=== PATIENT | male | born 1945 | race Caucasian/White ===

== ENCOUNTER 2024-05-02 19:08 | Emergency (ER) | payer BC, SELFPAY ==
[2024-05-02 19:09] VITALS: BP 185/88
[2024-05-02 20:26] VITALS: BMI 33.3
--- NOTE | 2024-05-02 22:05 | ED.GENMED ---
History of Present Illness
General
Chief Complaint: Skin Surface Trauma
Source: patient and spouse
Exam Limitations: none
Time Seen by Provider: 05/02/24 20:49
Nursing documentation reviewed up to this point in time: agreed with
History of Present Illness
History of Present Illness:
Patient presents to ED for evaluation after accidentally cutting his left thumb with a table saw. Denies any other injuries. Patient unsure of his last tetanus vaccination. Denies loss of sensation. Denies nail involvement.
Past History
Past History
ED Past Medical History: HTN and Hypercholesterolemia
Social History
Tobacco: Non-smoker
Alcohol: None
Drug: None
Personal:
Living: with family
Review of Systems
Review of Systems
Allergies reviewed?: Yes
All Other Systems: ROS reviewed and negative except as documented in HPI and ROS
Constitutional: Reports no symptoms
Skin: Reports other (Finger laceration)
Neurological: Reports no symptoms
Phy Exam
Physical Exam
Physical Exam:
Physical Exam
General: no apparent distress, not acutely ill. afebrile.
Head: nc/at. eomi
Neck: supple.
Neuro: alert and oriented. no focal neurological deficits
Skin: left 1st phalanx: macerated laceration noted over distal volar surface, without pulsatile bleeding. nail intact.
Psychiatric: well kept. interactive and cooperative
Extremities: no edema.
Course
Orders/Labs/Results
Orders:
Orders
05/02/24 22:05
Tetanus/Diphth/Acelpertussis [Adacel] 0.5 ml IM .ONCE ONE
Vital Signs
Initial and Last Documented VS:
Initial Vital Signs
Temp Pulse Resp BP Pulse Ox
98.2 F 63 18 185/88 99
05/02/24 19:09 05/02/24 19:09 05/02/24 19:09 05/02/24 19:09 05/02/24 19:09
Last Documented Vital Signs
Temp Pulse Resp BP Pulse Ox
97.5 F 50 18 187/80 98
05/02/24 22:27 05/02/24 22:27 05/02/24 19:09 05/02/24 22:27 05/02/24 22:27
Procedures
Laceration Closure
Left Distal Volar Thumb:
Status of Wound: dirty
Size of Wound in cm: 4
Description of Wound Edges: surrounded by abrasion and macerated
Preparation: cleaned with saline and cleaned with Betadine
Anesthesia: 1% Lidocaine
Revision/Debridement: minor revision and irrigate-direct pressure
Wound exploration: extensive cleaning of contaminated wound
Type of Closure: single layer closure
Skin Closure Material: 5-0 nylon
Number of sutures: 4
MDM/Problems Addressed
MDM/Problems Addressed:
Wound anesthetized digitally with lidocaine and irrigated copiously with Betadine and saline solution. Macerated open laceration loosely approximated with application of 4 sutures. Afterwards, additional Steri-Strips applied and bulky dressing
provided. As patient is already on amoxicillin secondary to recent dental procedure, no additional antibiotics prophylactically will be provided. However, discussed possibility of potential infection due to contamination. Advise close follow-up
with PCP for reevaluation.
*Critical Care Note
Total Time (30-74mins, 75-104mins- exclusive of procedures): Not Applicable
ED Attending Note
-
Portions of this chart may have been created with voice recognition software.� Occasional wrong word or��sound alike� substitutions may have occurred due to the inherent limitations of voice recognition software.
Discharge Plan
Departure
Patient Disposition: Home (Routine Discharge)
Date of Disposition: 05/02/24
Time of Disposition: 22:09
Patient with high blood pressure during this ER visit?: Yes
Discharge Problem:
Finger laceration
Instructions: Laceration Repair With Stitches (DC)
Prescriptions:
No Action
aspirin 81 mg Tablet,Delayed Release (Dr/Ec)
81 mg PO DAILY
simvastatin 40 mg Tablet
40 mg PO HS
valsartan 160 mg Tablet
240 mg PO DAILY
metoprolol tartrate 25 mg Tablet
12.5 mg PO BID
Referrals:
Burt Fraser DO [Family Provider] -
Activity Restrictions/Additional Instructions:
As discussed, please follow-up with your primary care physician for reevaluation, including suture removal in 7 to 10 days.
Interventions
Interventions:
*Risk Screen - Suicide Last Done: 05/02/24 19:09
*General Assessment Last Done: 05/02/24 19:09
*Neglect/Abuse Screening Last Done: 05/02/24 19:09
ED- Fall Risk Assessment Last Done: 05/02/24 20:27
*ED COVID-19 Vaccine History Last Done: 05/02/24 20:27
ED-Skin Assessment Last Done: 05/02/24 20:32
Discharge Date and Time
Print Language: SWEDISH
[2024-05-02 22:27] VITALS: BP 187/80
[2024-05-02] MEDS: ADACEL 0.5 ML IM (22:37)
== END 2024-05-02 22:54 | disposition home or self-care (01) ==
LOC: EMR 19:08
PROVIDERS: EMERGENCY PHYSICIAN Emergency Medicine; FAMILY PHYSICIAN Family Medicine; REFERRING PHYSICIAN Family Medicine
DX: S61.022A Laceration with foreign body of left thumb without damage to nail, initial encounter (principal); W31.2XXA Contact with powered woodworking and forming machines, initial encounter; Z23 Encounter for immunization; I10 Essential (primary) hypertension; E78.00 Pure hypercholesterolemia, unspecified; I25.10 Atherosclerotic heart disease of native coronary artery without angina pectoris; M19.90 Unspecified osteoarthritis, unspecified site; Z79.82 Long term (current) use of aspirin; Z95.5 Presence of coronary angioplasty implant and graft; Z85.828 Personal history of other malignant neoplasm of skin; Z87.820 Personal history of traumatic brain injury; Z87.891 Personal history of nicotine dependence
CPT/HCPCS: 12042; 99282; 90471; 90715

== ENCOUNTER → 2024-05-24 08:32 | Outpatient (REF) | payer BC, SELFPAY ==
[2024-05-24 10:41] LABS: % Basophils 0.8 % (0-2); % Eosinophils 2.9 % (0-6); % Immature Granulocytes 0.2 % (0-0.5); % Monocytes 10.7 % (1.7-9.3); % Neutrophils 43.4 % (42.2-75.2); Absolute Basophils 0.1 10^3/uL (0-0.2); Absolute Eosinophils 0.2 10^3/uL (0-0.7); Absolute Lymphocytes 2.6 10^3/uL (1.2-3.4); Absolute Monocytes 0.7 10^3/uL (0.1-0.6); Absolute Neutrophils 2.7 10^3/uL (1.4-6.5); Hematocrit 43.6 % (39.0-52.0); Mean Corp Hgb Conc. 34.4 g/dL (33.0-37.0); Mean Corpuscular Hgb 32.1 pg (27.0-31.0); Mean Corpuscular Volume 93.2 fL (80.0-94.0); Nucleated Red Blood Cells % 0 % (-); Red Blood Cell Count 4.68 10^6/uL (4.70-6.10); White Blood Cell Count 6.2 10^3/uL (4.8-10.8)
[2024-05-24 10:47] LABS: Glycohemoglobin (HgbA1c) 5.7 % (4.0-5.6)
[2024-05-24 10:59] LABS: ALT (SGPT) 21 U/L (0-50); AST (SGOT) 36 U/L (17-59); Albumin 4.4 g/dl (3.5-5.0); Alkaline Phosphatase 66 U/L (38-126); Blood Urea Nitrogen 18 mg/dl (9-20); Calcium 9.3 mg/dl (8.4-10.2); Carbon Dioxide 25 mmol/L (22-30); Chloride 107 mmol/L (98-107); Glucose 99 mg/dl (70-99); HDL Cholesterol 45 mg/dl; LDL Cholesterol, Calculated 97 mg/dl; Potassium 4.1 mmol/L (3.5-5.1); Sodium 141 mmol/L (135-145); Total Bilirubin 1.1 mg/dl (0.2-1.3); Total Cholesterol 155 mg/dl (50-199); Total Protein 6.9 g/dl (6.3-8.2); Triglyceride 68 mg/dl (10-149); Very Low Density Lipoprotein 13 mg/dl (0-30); eGFR > 60.00
[2024-05-24 11:21] LABS: PSA, Total - Screen 0.79 ng/ml (0.0-4.0); TSH 1.94 uIU/ml (0.47-4.68)
== END ==
LOC: REG 08:32
PROVIDERS: ATTENDING PHYSICIAN Family Medicine; FAMILY PHYSICIAN Family Medicine
DX: I15.1 Hypertension secondary to other renal disorders (principal); E03.4 Atrophy of thyroid (acquired); E11.65 Type 2 diabetes mellitus with hyperglycemia; E78.2 Mixed hyperlipidemia
CPT/HCPCS: 36415; 80053; 80061; 83036; 84443; 85025; G0103

== ENCOUNTER → 2024-05-29 14:58 | Outpatient (REF) | payer BC, SELFPAY | LOC: RAD 14:58 | PROVIDERS: ATTENDING PHYSICIAN Registered Nurse; FAMILY PHYSICIAN Family Medicine | DX: I65.22 Occlusion and stenosis of left carotid artery (principal) | CPT/HCPCS: 93880 ==

== ENCOUNTER 2024-06-24 20:59 | Inpatient (IN) | payer BC, MEDICARE, SELFPAY ==
[2024-06-24 18:01] VITALS: BP 168/86
[2024-06-24 18:10] VITALS: BP 137/108
[2024-06-24 18:25] LABS: % Basophils 0.4 % (0-2); % Eosinophils 0.3 % (0-6); % Immature Granulocytes 0.4 % (0-0.5); % Lymphocytes 12.3 % (20.5-51.1); % Monocytes 7.7 % (1.7-9.3); % Neutrophils 78.9 % (42.2-75.2); Absolute Lymphocytes 1.2 10^3/uL (1.2-3.4); Absolute Monocytes 0.8 10^3/uL (0.1-0.6); Absolute Neutrophils 7.9 10^3/uL (1.4-6.5); Hematocrit 43.9 % (39.0-52.0); Hemoglobin 15.1 g/dL (13.0-18.0); Mean Corp Hgb Conc. 34.4 g/dL (33.0-37.0); Mean Corpuscular Hgb 31.3 pg (27.0-31.0); Mean Corpuscular Volume 91.1 fL (80.0-94.0); Mean Platelet Volume 10.3 fL (7.4-10.4); Nucleated Red Blood Cells % 0 % (-); Platelet Count 203 10^3/uL (130-400); Red Blood Cell Count 4.82 10^6/uL (4.70-6.10); Red Cell Dist. Width 12.8 % (11.5-14.5)
[2024-06-24 18:26] LABS: Glucose - Point of Care 125 mg/dl (70-99)
[2024-06-24 18:37] VITALS: BMI 35.3
[2024-06-24 18:39] LABS: INR 1.14; PT 14.5 Sec (11.4-14.6)
[2024-06-24 18:40] LABS: APTT 33.9 Sec (23.4-35.0)
[2024-06-24 18:45] LABS: ALT (SGPT) 23 U/L (0-50); AST (SGOT) 36 U/L (17-59); Albumin 4.7 g/dl (3.5-5.0); Alkaline Phosphatase 60 U/L (38-126); Blood Urea Nitrogen 18 mg/dl (9-20); Calcium 9.7 mg/dl (8.4-10.2); Carbon Dioxide 26 mmol/L (22-30); Chloride 100 mmol/L (98-107); Estimated Creatinine Clearance 108 ml/min; Glucose 118 mg/dl (70-99); Potassium 4.2 mmol/L (3.5-5.1); Sodium 140 mmol/L (135-145); Total Protein 7.5 g/dl (6.3-8.2); eGFR > 60.00
[2024-06-24 18:50] LABS: Troponin I < 0.012 ng/ml
[2024-06-24 19:00] VITALS: BP 152/71
--- NOTE | 2024-06-24 19:00 | ED.CVA ---
ED Provider Triage
<Sanjay Bazan DO - Last Filed: 06/24/24 19:03>
-
HPI:
EXAM:
TIME OF INITIAL ENCOUNTER: 7 PM
NUMBER AND COMPLEXITY OF PROBLEMS ADDRESSED AT THE ENCOUNTER
� Chronic conditions affecting care: Has had concussion due to 22, CAD with coronary stents, high blood pressure, hyperlipidemia, depression, skin cancer, has had left sided CEA by Dr. Torrez in 2022
� Acute Exacerbation and/or Progression of Chronic Illness:
� Differential Diagnosis includes:
AMOUNT AND/OR COMPLEXITY OF DATA TO BE REVIEWED AND ANALYZED
� I performed an independent evaluation of and my interpretation is:
EKG:
CT: CT brain shows 3 mm acute versus old lacunar infarct in the anterior limb of the internal capsule on the right along with nonspecific white matter changes
X-rays:
Laboratory Studies: CBC unremarkable, chemistries unremarkable, troponin less than 0.012, glucose upon arrival was 125
Other:
� Review of other/old records: I reviewed records, the patient had a Holter monitor just over a year ago which showed very frequent PVCs with no runs of sustained ventricular ectopy there were also very short runs of atrial
tachycardia
� Clinical information was obtained by an independent historian:
� Prescriptions/Medications Considered but not given:
� Further testing considered but not performed:
RISK OF COMPLICATIONS AND/OR MORBIDITY OR MORTALITY OF PATIENT MANAGEMENT
� Social determinants of health affecting care:
� Discussion with other providers:
� Escalation of care including admission/observation vs risk of discharge considered:
<Jared Obrien PA-C - Last Filed: 06/24/24 19:26>
-
HPI: 78-year-old male with coronary artery disease, carotid endarterectomy on baby aspirin daily presents with onset of symptoms of dizziness trouble finding words at around 3:30 PM. 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 He got off the bus to go to the
bathroom when he returned to the bus, he was dizzy having trouble figure out how to start the bus. He was then found to have trouble finding words. Eventually spoke with his daughter on the phone who is a physician here on staff and she describes
that he was aphasic. Patient denies chest pain. He notes a slight cough. Daughter also notes that he has acted like this in the past when he had COVID. He denies abdominal pain nausea or vomiting. Per the who is in the room currently he
seems to be back at his baseline during my exam
EXAM:
TIME OF INITIAL ENCOUNTER: 7 PM
NUMBER AND COMPLEXITY OF PROBLEMS ADDRESSED AT THE ENCOUNTER
� Chronic conditions affecting care: Has had concussion due to 22, CAD with coronary stents, high blood pressure, hyperlipidemia, depression, skin cancer, has had left sided CEA by Dr. Torrez in 2022
� Acute Exacerbation and/or Progression of Chronic Illness:
� Differential Diagnosis includes:
AMOUNT AND/OR COMPLEXITY OF DATA TO BE REVIEWED AND ANALYZED
� I performed an independent evaluation of and my interpretation is:
EKG:
CT: CT brain shows 3 mm acute versus old lacunar infarct in the anterior limb of the internal capsule on the right along with nonspecific white matter changes
X-rays:
Laboratory Studies: CBC unremarkable, chemistries unremarkable, troponin less than 0.012, glucose upon arrival was 125
Other:
� Review of other/old records: I reviewed records, the patient had a Holter monitor just over a year ago which showed very frequent PVCs with no runs of sustained ventricular ectopy there were also very short runs of atrial
tachycardia
� Clinical information was obtained by an independent historian:
� Prescriptions/Medications Considered but not given:
� Further testing considered but not performed:
RISK OF COMPLICATIONS AND/OR MORBIDITY OR MORTALITY OF PATIENT MANAGEMENT
� Social determinants of health affecting care:
� Discussion with other providers:
� Escalation of care including admission/observation vs risk of discharge considered:
History of Present Illness
<Sanjay Bazan DO - Last Filed: 06/24/24 19:03>
General
Chief Complaint: CVA/TIA Symptoms
Time Seen by Provider: 06/24/24 19:00
<Jared Obrien PA-C - Last Filed: 06/24/24 19:26>
General
Source: patient
Exam Limitations: none
Onset of Stroke Symptoms
Onset of symptoms known: No
Time pt last seen normal is known: No
History of Present Illness
History of Present Illness:
See below
Past History
<DO Jeannine Patino Last Filed: 06/24/24 19:03>
Past History
ED Past Medical History: HTN and Hypercholesterolemia
Social History
Tobacco: Non-smoker
Alcohol: None
Drug: None
Personal:
Living: with family
Phy Exam
<Jared Obrien PA-C - Last Filed: 06/24/24 19:26>
Physical Exam
Physical Exam:
General: Well-appearing male no acute respiratory distress
HEENT: Normocephalic atraumatic
Heart: Regular rate and rhythm
Lungs: Clear no wheeze
Neurologic exam: Alert and oriented x 3 no facial asymmetry no drift on exam finger-nose intact [id number] intact. No dysarthria or aphasia.
Skin is warm and flushed
Extremities: No cyanosis or edema
Course
<Sanjay Bazan DO - Last Filed: 06/24/24 19:03>
Orders/Labs/Results
Orders:
Orders
06/24/24 18:14
Electrocardiogram (*1) Stat
Reason for Study: Other
Other Reason for Exam: neuro symptoms
CT Head W/o Cont STROKE ALERT Urgent
Comment:
Reason For Exam: speech issues
Bedside Glucose- Treatment ONCE
EKG- Treatment ONCE
06/24/24 18:21
Complete Blood Count/With Diff Urgent
Comprehensive Metabolic Panel Urgent
PTT Urgent
Prothrombin Time Urgent
Troponin I Urgent
06/24/24 18:44
COVID-19 Antigen Urgent
Source: Nasal Swab
Influenza A+B Rapid Molecular Urgent
LUI Source: Nasal Swab
Specimen Description:
06/24/24 19:16
Aspirin 325 mg PO NOW STA
Clopidogrel Bisulfate [Plavix] 150 mg PO NOW STA
Abnormal Lab Results
06/24/24 06/24/24 06/24/24
18:21 18:25 18:44
MCH 31.3 H pg
(27.0-31.0)
Absolute Neuts (auto) 7.9 H 10^3/uL
(1.4-6.5)
Absolute Monos (auto) 0.8 H 10^3/uL
(0.1-0.6)
Neutrophils % 78.9 H %
(42.2-75.2)
Lymphocytes % 12.3 L %
(20.5-51.1)
Glucose 118 H mg/dl
(70-99)
SARS-CoV-2 Antigen Positive A
(Negative)
POC Glucose 125 H mg/dl
(70-99)
06/24/24 18:21
06/24/24 18:21
Vital Signs
Initial and Last Documented VS:
Initial Vital Signs
Temp Pulse Resp BP Pulse Ox
98.7 F 87 20 168/86 98
06/24/24 18:01 06/24/24 18:01 06/24/24 18:01 06/24/24 18:01 06/24/24 18:01
Last Documented Vital Signs
Temp Pulse Resp BP Pulse Ox
99.4 F 82 19 137/108 97
06/24/24 18:41 06/24/24 19:00 06/24/24 19:00 06/24/24 18:10 06/24/24 18:15
<Jared Obrien PA-C - Last Filed: 06/24/24 19:26>
Orders/Labs/Results
Orders:
Orders
06/24/24 18:14
Electrocardiogram (*1) Stat
Reason for Study: Other
Other Reason for Exam: neuro symptoms
CT Head W/o Cont STROKE ALERT Urgent
Comment:
Reason For Exam: speech issues
Bedside Glucose- Treatment ONCE
EKG- Treatment ONCE
06/24/24 18:21
Complete Blood Count/With Diff Urgent
Comprehensive Metabolic Panel Urgent
PTT Urgent
Prothrombin Time Urgent
Troponin I Urgent
06/24/24 18:44
COVID-19 Antigen Urgent
Source: Nasal Swab
Influenza A+B Rapid Molecular Urgent
LUI Source: Nasal Swab
Specimen Description:
06/24/24 19:16
Aspirin 325 mg PO NOW STA
Clopidogrel Bisulfate [Plavix] 150 mg PO NOW STA
Abnormal Lab Results
06/24/24 06/24/24 06/24/24
18:21 18:25 18:44
MCH 31.3 H pg
(27.0-31.0)
Absolute Neuts (auto) 7.9 H 10^3/uL
(1.4-6.5)
Absolute Monos (auto) 0.8 H 10^3/uL
(0.1-0.6)
Neutrophils % 78.9 H %
(42.2-75.2)
Lymphocytes % 12.3 L %
(20.5-51.1)
Glucose 118 H mg/dl
(70-99)
SARS-CoV-2 Antigen Positive A
(Negative)
POC Glucose 125 H mg/dl
(70-99)
06/24/24 18:21
06/24/24 18:21
Vital Signs
Initial and Last Documented VS:
Initial Vital Signs
Temp Pulse Resp BP Pulse Ox
98.7 F 87 20 168/86 98
06/24/24 18:01 06/24/24 18:01 06/24/24 18:01 06/24/24 18:01 06/24/24 18:01
Last Documented Vital Signs
Temp Pulse Resp BP Pulse Ox
99.4 F 82 19 137/108 97
06/24/24 18:41 06/24/24 19:00 06/24/24 19:00 06/24/24 18:10 06/24/24 18:15
<Jared Obrien PA-C - Last Filed: 06/24/24 19:26>
*Critical Care Note
Total Time (30-74mins, 75-104mins- exclusive of procedures): Not Applicable
<Jared Obrien PA-C - Last Filed: 06/24/24 19:26>
Update Note
Update Note:
Stroke alert called by nurse upon triage given aphasia and dizziness. Symptoms have seemed to resolve. There is no evidence of aphasia or ataxia on my exam. CT of the head was performed which demonstrates old versus new lacunar infarct. There is
no hemorrhagic findings. Discussed findings with emergency room attending as well as neurology. Will add a full aspirin and 150 mg of Plavix for now and will plan on admitting to hospitalist for TIA workup.
Additional findings include COVID-positive test result today.
ED Attending Note
<Sanjay Bazan DO - Last Filed: 06/24/24 19:03>
-
Portions of this chart may have been created with voice recognition software.� Occasional wrong word or��sound alike� substitutions may have occurred due to the inherent limitations of voice recognition software.
Discharge Plan
Departure
Patient Disposition: Admit
Date of Disposition: 06/24/24
Time of Disposition: 19:25
Admit to: Telemetry
Presentation/result/management discussed w/ accepting MD/DO: Hospitalist
Discharge Problem:
Aphasia, COVID-19
Prescriptions:
No Action
aspirin 81 mg Tablet,Delayed Release (Dr/Ec)
81 mg PO DAILY
simvastatin 40 mg Tablet
40 mg PO HS
metoprolol tartrate 25 mg Tablet
25 mg PO BID
valsartan 320 mg tablet
320 mg PO DAILY
nitroglycerin 0.4 mg tablet, sublingual
0.4 mg sublingual [id number] PRN (Reason: chest pain)
tadalafil 5 mg tablet
5 mg PO DAILYPRN PRN (Reason: urinary)
Eye Injection
1 dose SC .Q4-5W
Fish Oil
4 tab PO HS
Referrals:
Burt Fraser DO [Family Provider] -
Interventions
Interventions:
*Risk Screen - Suicide Last Done: 06/24/24 18:55
*General Assessment Last Done: 06/24/24 18:55
*Neglect/Abuse Screening Last Done: 06/24/24 18:55
ED- Fall Risk Assessment Last Done: 06/24/24 18:15
ED- Pulmonary Assessment Last Done: 06/24/24 18:15
ED- Neurological Assessment Last Done: 06/24/24 19:09
ED- Cardiac Assessment Last Done: 06/24/24 18:15
ED Swallowing Screen Last Done: 06/24/24 18:15
Discharge Date and Time
Print Language: BERMUDIAN
[2024-06-24 19:09] LABS: COVID-19 Antigen Positive (Negative)
--- NOTE | 2024-06-24 19:27 | HPS.HSE ---
Family Physician
-
Family Physician: Burt Fraser
Chief Complaint
-
Aphasia
History of Present Illness
Patient is an 78-year-old male past medical history of ASCVD, hypertension, and hyperlipidemia who presents with dizziness and word finding difficulties. Patient works as a business process representative. He got off the bus to use the bathroom at one of the schools,
and when he returned to the bus he experienced dizziness and was also having difficulty figure out how to start the bus. Patient was also noted to have word finding difficulty. He was noted by his daughter, who is a physician, to be aphasic.
Daughter notes he had similar presentation when he had COVID in the past. Patient reports developing cough last evening. Patient is unable to provide much history, and appears somewhat confused during my evaluation. He denies any focal numbness,
tingling, weakness.
Medical History
Past Medical History
Past Medical History: Reports Other
Additional Past Medical History:
Coronary Artery Disease
Peripheral Arterial Disease
Essential Hypertension
Hyperlipidemia
Macular Degenerative
Past Surgical History: Reports Other
Additional Past Surgical History:
Cardiac Stent
Left Carotid Endarterectomy
Tonsillectomy
Social History
Tobacco: Non-smoker
Alcohol: None
Family History
Family History: Not pertinent
Allergies / Home Medications
Allergies reflects when Allergies were last updated in [employer].
Home Medications with original date entered in [employer]
Allergy/Medication List:
Allergies
Allergy/AdvReac Type Severity Reaction Status Date / Time
No Known Allergies Allergy Verified 06/24/24 18:55
Home Medications
aspirin 81 mg tablet,delayed release 81 mg PO DAILY Blood Clot Prevention/Tx 03/14/23
metoprolol tartrate 25 mg tablet 25 mg PO BID Blood Pressure 03/14/23
simvastatin 40 mg tablet 40 mg PO HS High Cholesterol 03/14/23
Eye Injection 1 dose SC .Q4-5W 06/24/24
Fish Oil 4 tab PO HS 06/24/24
nitroglycerin 0.4 mg sublingual tablet 0.4 mg sublingual [id number] PRN chest pain 06/24/24
tadalafil 5 mg tablet 5 mg PO DAILYPRN PRN urinary 06/24/24
valsartan 320 mg tablet 320 mg PO DAILY 06/24/24
Review of Systems
-
A 12 point ROS was completed and negative except as noted: Yes
Constitutional: Denies Fever or Chills
Respiratory: Reports Cough; Denies Trouble Breathing
Cardiac: Denies Chest Pain or Palpitations
Neurological: Reports Dizzy
Physical Exam
Vital Signs
Vital Signs
Temp Pulse Resp BP Pulse Ox
99.4 F 82 19 137/108 97
06/24/24 18:41 06/24/24 19:00 06/24/24 19:00 06/24/24 18:10 06/24/24 18:15
Physical Exam
General: Comfortable and Conversant
HEENT: Anicteric and Moist mucous membranes
Respiratory: Clear and Non Labored Respirations
Cardiac: S1/S2 and Regular Rhythm
GI: Soft, Non Tender and Other (Protuberant)
Rectal: Deferred by Provider
Musculoskeletal: No Clubbing, No Cyanosis and No Edema
Skin: Warm and Dry
Neuro: Awake, Alert, No Motor Deficits and Other (Speech is slow but without slurring )
Psych: Calm and Other (Appears slightly confused)
Laboratory Results
-
06/24/24 18:21
06/24/24 18:21
Laboratory Results
PT 14.5 Sec (11.4-14.6) 06/24/24 18:21
INR 1.14 06/24/24 18:21
APTT 33.9 Sec (23.4-35.0) 06/24/24 18:21
Total Bilirubin 1.0 mg/dl (0.2-1.3) 06/24/24 18:21
AST 36 U/L (17-59) 06/24/24 18:21
ALT 23 U/L (0-50) 06/24/24 18:21
Alkaline Phosphatase 60 U/L (38-126) 06/24/24 18:21
Troponin I < 0.012 ng/ml 06/24/24 18:[address]:
3 mm acute versus old lacunar infarct in the anterior limb of the on the right
There is mild diffuse cortical atrophy with nonspecific minimal white matter changes
Data Reviewed
-
CT Scan: Report Reviewed by me
Lab Data: Labs Reviewed by me
Impression/Plan
-
Confusion / Aphasia, clinical concern for acute stroke
-Consult Neurology
-Continue aspirin and Plavix
-Check Brain MRI with Head/Neck MRA
Acute Bronchitis and TME secondary to COVID-19
-Check Chest X-Ray
-Start molnupiravir (Unable to give Paxlovid due to interaction with Plavix)
-Symptom management with Mucinex and Tessalon Perles
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
-Continue aspirin
Essential Hypertension
-Allow for permissive hypertension for 24 hour
-Will use hydralazine prn for SBP >220 or DBP>110
Hyperlipidemia
-Continue simvastatin
DVT proph: SCDs
Code Status: Full Code
[2024-06-24] MEDS: PLAVIX 150 MG PO (19:31)
[2024-06-24] MEDS: ASPIRIN 325 MG PO (19:31)
[2024-06-24 20:00] VITALS: BP 150/87
--- NOTE | 2024-06-24 20:10 | W.PN.UPDATE ---
Update Note
Progress Note Update
Patient seen in conjunction with YAZMIN. I agree with the findings on history and physical as well as concur with the assessment and plan.
Briefly this is a 78-year-old male who has a past medical history of CAD, carotid stenosis status post carotid endarterectomy, hyperlipidemia, hypertension who is otherwise quite active and still employed as a prescriber presents to the emergency
department with episode of dizziness and word finding difficulty. Patient reported that he started having coughing yesterday. Coughing is somewhat dry but in paroxysms. He felt weak this morning but went to work. Spouse reported that he had
unusual gait in the morning. He reports feeling dizzy going up and down the steps. Coworkers reported that he was walking abnormally and had some word finding difficulties and that his blood pressure was elevated. Patient brought to the ED by
spouse. Daughter noted significant aphasia.
In the ED he had diastolic hypertension with blood pressure 147/108, temperature was 99.4, oxygen saturation was 95 to 91% on room air. Is a stroke scale was 0. He had a CT of the head which showed age-indeterminate lacunar infarct. ECG with
normal sinus rhythm. His CBC was unremarkable. Chemistries were within normal limits. His COVID test is positive.
On my exam he was neurologically intact with some word finding difficulty and mild confusion. No TNK
Assessment and plan:
TIA/CVA - Possible TIA or CVA given CT scan finding and minor deficit on word finding. Has carotid atherosclerotic disease.
- d/w neurology, started plavix in addition to daily aspirin
- telemetry
- mri/mra in am
- permissive htn, sbp < 180 goal
- continue home valsartan for now
- restart statin after paxlovid
COVID 19 - Moderate risk of progression to severe disease.
- paxlovid
- supportive care
DVT PPX - lovenox
Code status- Full code
[2024-06-24] MEDS: MOLNUPIRAVIR (EUA) 800 MG PO (20:43)
[2024-06-24 21:00] VITALS: BP 161/81
[2024-06-24 22:15] VITALS: BP 120/72
[2024-06-24] MEDS: LIPITOR 20 MG PO (23:36)
[2024-06-25] VITALS (8 sets, daily range): BP systolic 103–172; BP diastolic 59–103; PULSE 71–92; O2SAT 98; BMI 35.3
[2024-06-25] MEDS: TYLENOL 650 MG PO (04:15)
[2024-06-25 07:33] LABS: Hematocrit 43.2 % (39.0-52.0); Hemoglobin 15.1 g/dL (13.0-18.0); Mean Corpuscular Hgb 31.5 pg (27.0-31.0); Red Cell Dist. Width 12.8 % (11.5-14.5); White Blood Cell Count 8.1 10^3/uL (4.8-10.8)
[2024-06-25 07:52] LABS: Blood Urea Nitrogen 15 mg/dl (9-20); Calcium 9.4 mg/dl (8.4-10.2); Carbon Dioxide 24 mmol/L (22-30); Chloride 103 mmol/L (98-107); Estimated Creatinine Clearance > 125 ml/min; Glucose 118 mg/dl (70-99); HDL Cholesterol 47 mg/dl; LDL Cholesterol, Calculated 81 mg/dl; Potassium 3.5 mmol/L (3.5-5.1); Sodium 139 mmol/L (135-145); Total Cholesterol 138 mg/dl (50-199); Triglyceride 54 mg/dl (10-149); Very Low Density Lipoprotein 10 mg/dl (0-30); eGFR > 60.00
--- NOTE | 2024-06-25 09:05 | PTOTSP ---
Speech Language Pathology
Pt seen for speech and language evaluation. No dysarthria noted, and pt was 100% intelligible in known and unknown contexts. Informal cognitive-linguistic testing completed given COVID precautions. No deficits noted.
Pt also seen for clinical bedside swallow evaluation. P.O. trials of puree, regular solids, and thin liquids provided. Adequate mastication, bolus formation, and A-P transit noted with no oral residue. No overt signs of aspiration.
Recommend:
(1) Regular solids/thin liquids
(2) General aspiration precautions
(3) Meds as tolerated
(4) STATE'S ATTORNEY to sign off. Please reconsult as indicated
[2024-06-25 09:29] LABS: Glycohemoglobin (HgbA1c) 5.7 % (4.0-5.6)
[2024-06-25] MEDS: PLAVIX 75 MG PO (09:30)
[2024-06-25] MEDS: MUCINEX 600 MG PO ×2 (09:30→20:37)
[2024-06-25] MEDS: ASPIR LOW (ENTERIC COATED) 81 MG PO (09:31)
[2024-06-25] MEDS: VITAMIN D3 (cholecalciferol) 50 MCG PO (09:31)
[2024-06-25] MEDS: ZINC 50 MG PO (09:31)
[2024-06-25] MEDS: MOLNUPIRAVIR (EUA) 800 MG PO ×2 (09:31→20:37)
[2024-06-25] MEDS: VITAMIN C 1000 MG PO ×2 (09:31→20:37)
--- NOTE | 2024-06-25 09:51 | PTOTSP ---
The patient is independent with ambulation and elevations, so strength or balance deficits noted. No PT needs identified at this time, will sign off.
--- NOTE | 2024-06-25 10:17 | W.PN.HOSP.TC ---
Today's Communication/Plan
-
MRI of brain pending
still with Covid assoc fever, neg CXR
Assessment / Plan
Assessment / Plan
Confusion / Aphasia, clinical concern for acute stroke
-Consult Neurology
-Continue aspirin and Plavix
-Check Brain MRI with Head/Neck MRA
Acute Bronchitis and TME secondary to COVID-19
-Chest X-Ray - [facility]
-Started molnupiravir (Unable to give Paxlovid due to interaction with Plavix, checked with pharm, does not interact with stains)
-Symptom management with Mucinex and Tessalon Perles
On room air SaO2 94%
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
-Continue aspirin
Essential Hypertension
-most recently
Hyperlipidemia
-Continue simvastatin
DVT proph: SCDs
Code Status: Full Code
Anticipated Discharge: 24 - 48 hours
Subjective/Interval History
-
Date of Service: June 25, 2024
Awake, alert, conversant
Objective Data
-
Labs:
Laboratory Results
06/25/24
06:28
WBC 8.1
Hgb 15.1
Hct 43.2
Plt Count
Sodium 139
Potassium 3.5
Chloride 103
Carbon Dioxide 24
BUN 15
Creatinine 0.6 L
Glucose 118 H
Calcium 9.4
Vital Signs:
Vital Signs
Temp Pulse Resp BP Pulse Ox
98.2 F 71 18 128/67 94
06/25/24 07:25 06/25/24 07:25 06/25/24 07:25 06/25/24 07:25 06/25/24 07:25
Review of Systems
-
History Source: Patient and Coordinated Provider
Constitutional: Reports Fever (Tmax 102.1)
EENT: Reports No Symptoms Reported
Respiratory: Reports Cough; Denies Trouble Breathing
Cardiac: Reports No Symptoms; Denies Chest Pain
Abdomen/GI: Reports No Symptoms; Denies Abdominal Pain
Genitourinary: Reports No Symptoms
Neuro: Reports No Symptoms (no confusion, word finding difficulty not noted)
Hematologic / Lymphatic: Reports No Symptoms
Physical Exam
-
General: Well Developed, Well Nourished and No Apparent Distress
HEENT: Normocephalic, Atraumatic and Moist Mucous Membranes
Respiratory: Clear to Auscultation; Negative Wheezes, Rales or Rhonchi
Cardiac: Regular Rhythm and S1/S2
GI: Soft, Nontender and Nondistended
Musculoskeletal: No Clubbing, No Cyanosis and No Edema
Neuro: Awake, Alert, Oriented and No Motor Deficits (gait not tested); Negative Slurred Speech or Facial Droop
--- NOTE | 2024-06-25 12:55 | EEG.RPT ---
Electroencephalogram Report
Recording
Date of EE06/25/24
Length of EEG recordin mins
Done with Video Recording: Yes
Patient Status: Inpatient
Recording Conditions: Awake
Hyperventilation Performed: No
Photic Stimulation Performed: Yes
Report
METHODS
A 21 channel digitized electroencephalogram was performed at [facility]. The 10/20 international system of electrode placement was used. In addition to EEG, the patient was monitored for EKG. The duration of the recording was 26 minutes.
BACKGROUND
During the awake state, with the eyes closed, the background consisted of a normal amplitude, 11-12 Hertz posterior reactive rhythm that attenuated appropriately with eye opening. Beta activity was distributed diffusely with an anterior
predominance. There was a normal anterior-posterior voltage gradient. With eye opening the background activity changed to a low voltage mixture of alpha, beta, and occasional theta range frequencies. There were no significant asymmetries of
background activity noted.
PHOTIC STIMULATION
Photic stimulation using a step-han increase in photic frequency varying from 1-31 Hertz resulted in no driving responses but no appearance of abnormal activity.
ABNORMAL EEG ACTIVITY
None
CLINICAL EVENTS
None
INTERPRETATION AND CLINICAL CORRELATION
This EEG is normal during the awake state as well as during photic stimulation. No seizures were noted during the recording. A normal EEG, in itself, does not rule out a diagnosis of epilepsy. If clinical suspicion for seizure persists, a
sleep-deprived and/or prolonged recording may be warranted.
--- NOTE | 2024-06-25 14:19 | CM ---
Reviewed the chart notes and spoke with the patient's spouse outside patient's room. Patient is Covid +. The patient resides with his spouse in a split level home with one step to enter. The patient uses no DME, no VN or SNF in past either. The
patient was evaluated by PT, no PT need. CM continues to be available to patient/family and is monitoring medical plan for needs at discharge.
Plan: Discharge to home when medically stable. No needs anticipated.
--- NOTE | 2024-06-25 15:20 | CON.NEURO4 ---
Consultation - Neurology 4
-
CONSULTING PHYSICIAN: Deepak Kang MD
REFERRING PHYSICIAN: Hospitalist
DICTATED BY: Deepak Kang MD
DATE/TIME OF REQUEST: 06/24/2024
DATE/TIME OF CONSULTATION: 06/25/2024
Reason for Consultation: Slurred speech
History of Present Illness:
This is a 78 year old right handed (male who was admitted to the hospital on Monday evening with (chief complaint) of slurred speech. He gives a past medical history of CAD, LEFT carotid stenosis status post carotid endarterectomy, hyperlipidemia,
hypertension who presents to the emergency department with episode of dizziness and word finding difficulty. Patient reported that he started having coughing yesterday. Coughing is somewhat dry but in paroxysms. He felt weak this morning but went
to work. Spouse reported that he had unusual gait in the morning. He reports feeling dizzy going up and down the steps. Coworkers reported that he was walking abnormally and had some word finding difficulties and that his blood pressure was
elevated. Patient brought to the ED by spouse. Daughter noted significant aphasia.
In the ED he had diastolic hypertension with blood pressure 147/108, temperature was 99.4, oxygen saturation was 95 to 91% on room air. Is a stroke scale was 0. He had a CT of the head which showed age-indeterminate lacunar infarct. ECG with
normal sinus rhythm. His CBC was unremarkable. Chemistries were within normal limits. His COVID test is positive.
At the time of my exam pat is awake alert oriented with normal speech
-
Past Medical History: As above
Surgical History: CEA, cardiac stent
Family History: NC
Social History: Lives at home independent No cig no Etoh
Allergies: NKA
Home Medications:Addendum
Review of Symptoms:
Patient denies any fever, headache, chest pain, shortness of breath, GI or symptoms.
�Per the HPI.�All systems are reviewed negative except above.
�-
Vital Signs:
The patient has a
Temp Pulse Resp BP Pulse Ox
36.7 C 73 18 120/64 98
Physical Exam:
The patient is afebrile, heart sounds S1 and S2 are (regular , and chest is clear to auscultation bilaterally.
- If not clear, describe.
NIH Stroke Scale (if applicable):
I performed the NIH stroke scale on the patient. The patient scored ( 0 ) points on the NIH stroke scale assessment:
Neurologic Examination:
The patient is awake, alert and oriented x 3. He is able to follow commands and answer questions appropriately. There is no aphasia or dysarthria. On cranial nerve assessment, pupils are 3 mm bilateral, round and reactive to light and
accommodation. Visual colin are full. Extraocular movements are intact. Facial sensations are intact and bilaterally symmetrical, there is no facial asymmetry. Hearing is impaired bilaterally. Tongue palate and uvula are midline.
Sternocleidomastoid strengths are full bilaterally.
Motor strengths are 5/5 bilateral upper and lower extremities on medical research [place] scale. There is no drift or involuntary movement noted. Deep tendon reflexes are 2+ bilateral upper and lower extremities and Babinski is absent bilaterally.
Sensations of pain, touch, temperature and vibration are intact and bilaterally symmetrical. There was no extinction noted on double simultaneous stimulation. Coordination is intact by finger to nose bilaterally.
Rombergs Negative. Gait WNL
Lab Results: See addendum
Neuro Imaging: CT head: Atrophy. Minimal small vessel disease. Mild ventricular expansion
Impression:
(Mr. / Ms.) MILANA SOLORZANO is a 78 year old M who has presented to the hospital with (symptoms/chief complaint) of slurred speech dizziness who is
COVID positive
Differentials for the patient's presentation include:
1. COVID related encephalopathy
2. Vertebrobasilar insufficiency
Recommendations:
1. Ecasa 81 mg
2. Plavix 75 mg
3. Molnupiravir
4. Strict BP control
5. Carotid doppler
6. Echocardiogram
Discussed patient care with:
Allergies
-
Allergies
Allergy/AdvReac Type Severity Reaction Status Date / Time
No Known Allergies Allergy Verified 06/24/24 18:55
Vital Signs and Labs
-
Vital Signs and Labs:
Vital Signs
Temp Pulse Resp BP Pulse Ox
36.7 C 73 18 120/64 98
06/25/24 11:05 06/25/24 11:05 06/25/24 11:05 06/25/24 11:05 06/25/24 11:05
Lab Results
06/25/24 06:28
06/25/24 06:28
PT 14.5 Sec (11.4-14.6) 06/24/24 18:21
INR 1.14 06/24/24 18:21
APTT 33.9 Sec (23.4-35.0) 06/24/24 18:21
Sodium 139 mmol/L (135-145) 06/25/24 06:28
Potassium 3.5 mmol/L (3.5-5.1) 06/25/24 06:28
BUN 15 mg/dl (9-20) 06/25/24 06:28
Glucose 118 mg/dl (70-99) H 06/25/24 06:28
Calcium 9.4 mg/dl (8.4-10.2) 06/25/24 06:28
LDL Cholesterol, Calc 81 mg/dl 06/25/24 06:28
Medications
-
Active Medications
Generic Name Dose Route Start Last Admin
Trade Name Freq PRN Reason Stop Dose Admin
Acetaminophen 650 mg 06/24/24 22:01
Acetaminophen 650 Mg Rectal Suppository RECTAL 07/22/24 22:00
Q4HPRN PRN
MADRID, mild pain, or temp >100.4F
Acetaminophen 650 mg 06/24/24 22:01 06/25/24 04:15
Acetaminophen 325 Mg Tablet PO 07/22/24 22:00 650 mg
Q4HPRN PRN Administration
MADRID, mild pain, or temp >100.4F
Ascorbic Acid 1,000 mg 06/25/24 08:00 06/25/24 09:31
Ascorbic Acid 500 Mg Tablet PO 07/23/24 07:59 1,000 mg
BID JEREMY Administration
Aspirin 81 mg 06/25/24 08:00 06/25/24 09:31
Aspirin 81 Mg (Enteric Coated) Tablet PO 07/23/24 07:59 81 mg
DAILY JEREMY Administration
Atorvastatin Calcium 20 mg 06/24/24 23:00 06/24/24 23:36
Atorvastatin (Lipitor) 20 Mg Tablet PO 07/22/24 22:59 20 mg
HS JEREMY Administration
Benzonatate 200 mg 06/24/24 22:01
Benzonatate 100 Mg Capsule PO 07/22/24 22:00
TIDPRN PRN
cough
Cholecalciferol 50 mcg 06/25/24 08:00 06/25/24 09:31
Cholecalciferol (Vitamin D3) 50 Mcg Tablet (2,000 Units) PO 07/23/24 07:59 50 mcg
DAILY JEREMY Administration
Clopidogrel Bisulfate 75 mg 06/25/24 08:00 06/25/24 09:30
Clopidogrel 75 Mg Tablet PO 07/23/24 07:59 75 mg
DAILY JEREMY Administration
Guaifenesin 600 mg 06/25/24 08:00 06/25/24 09:30
Guaifenesin 600 Mg Extended Release Tablet PO 07/23/24 07:59 600 mg
Q12 JEREMY Administration
Hydralazine HCl 5 mg 06/24/24 22:01
Hydralazine 20 Mg/Ml Vial IV 07/22/24 22:00
Q6HPRN PRN
SBP>220 or DBP>110
Molnupiravir 800 mg 06/24/24 20:30 06/25/24 09:31
Molnupiravir 200 Mg Capsule PO 06/29/24 08:01 800 mg
Q12 JEREMY Administration
Sodium Chloride 0 flush 09/16/24 21:00
Sodium Chloride 0.9% (Flush) Syringe IV 07/22/24 20:59
PER PROTOCOL JEREMY
Zinc 50 mg 06/25/24 08:00 06/25/24 09:31
Zinc 50 Mg (Zinc Sulfate 220 Mg) Capsule PO 07/23/24 07:59 50 mg
DAILY JEREMY Administration
Home Medications
�Medication �Instructions �Recorded
aspirin 81 mg tablet,delayed 81 mg PO DAILY Blood Clot 03/14/23
release Prevention/Tx
metoprolol tartrate 25 mg tablet 25 mg PO BID Blood Pressure 03/14/23
simvastatin 40 mg tablet 40 mg PO HS High Cholesterol 03/14/23
Eye Injection 1 dose SC .Q4-5W 06/24/24
Fish Oil 4 tab PO HS 06/24/24
nitroglycerin 0.4 mg sublingual 0.4 mg sublingual [id number] PRN 06/24/24
tablet chest pain
tadalafil 5 mg tablet 5 mg PO DAILYPRN PRN urinary 06/24/24
valsartan 320 mg tablet 320 mg PO DAILY 06/24/24
[2024-06-25] MEDS: LOPRESSOR 25 MG PO (20:38)
[2024-06-25] MEDS: LIPITOR 20 MG PO (21:39)
[2024-06-25 22:00] LABS: Urine Albumin 1+ (Neg - Trace); Urine Bilirubin Negative (Negative); Urine Character Clear (Clear); Urine Color Amber; Urine Glucose Negative (Negative); Urine Ketone 1+ (Negative); Urine Leukocyte Negative (Negative); Urine Nitrite Negative (Negative); Urine Occult Blood 1+ (Negative); Urine Specific Gravity 1.015 (<1.030); Urine Urobilinogen Negative (Neg - 1+)
[2024-06-25 22:19] LABS: Urine White Cell 0-2 /HPF (0-5)
[2024-06-26 03:25] VITALS: BP 163/92
[2024-06-26 04:57] VITALS: BMI 33.6
[2024-06-26 07:00] VITALS: BP 124/76
[2024-06-26] MEDS: VITAMIN C 1000 MG PO (08:14)
[2024-06-26] MEDS: MUCINEX 600 MG PO (08:15)
[2024-06-26] MEDS: ASPIR LOW (ENTERIC COATED) 81 MG PO (08:15)
[2024-06-26] MEDS: PLAVIX 75 MG PO (08:15)
[2024-06-26] MEDS: ZINC 50 MG PO (08:15)
[2024-06-26] MEDS: VITAMIN D3 (cholecalciferol) 50 MCG PO (08:15)
[2024-06-26] MEDS: LOPRESSOR 25 MG PO (08:15)
[2024-06-26] MEDS: MOLNUPIRAVIR (EUA) 800 MG PO (08:18)
[2024-06-26 08:20] LABS: % Basophils 0.7 % (0-2); % Eosinophils 3.5 % (0-6); % Immature Granulocytes 0.2 % (0-0.5); % Lymphocytes 29.4 % (20.5-51.1); % Neutrophils 51.2 % (42.2-75.2); Absolute Eosinophils 0.2 10^3/uL (0-0.7); Absolute Lymphocytes 1.8 10^3/uL (1.2-3.4); Absolute Monocytes 0.9 10^3/uL (0.1-0.6); Absolute Neutrophils 3.1 10^3/uL (1.4-6.5); Hematocrit 47.9 % (39.0-52.0); Hemoglobin 16.5 g/dL (13.0-18.0); Mean Corp Hgb Conc. 34.4 g/dL (33.0-37.0); Mean Corpuscular Hgb 31.2 pg (27.0-31.0); Mean Corpuscular Volume 90.5 fL (80.0-94.0); Mean Platelet Volume 11.8 fL (7.4-10.4); Nucleated Red Blood Cells % 0 % (-); Platelet Count 156 10^3/uL (130-400); Red Blood Cell Count 5.29 10^6/uL (4.70-6.10); Red Cell Dist. Width 12.9 % (11.5-14.5); White Blood Cell Count 6.1 10^3/uL (4.8-10.8)
[2024-06-26 08:25] LABS: Procalcitonin < 0.05 ng/ml (0.0-0.25)
--- NOTE | 2024-06-26 10:29 | W.PN.HOSP.TC ---
Addendum entered and electronically signed by Dimitry Foss MD 06/28/24 15:45:
Pt had Acute Metabolic Encephalopathy due to Covid-19
Original Note:
Today's Communication/Plan
-
dc to home
Assessment / Plan
Assessment / Plan
Confusion / Aphasia, clinical concern for acute stroke
-Consulted Neurology, reviewed with sang Iverson to dc, does not need Plavix
-Continue aspirin and Plavix
-Brain MRI: No evidence of acute intracranial abnormality.
Mild to moderate diffuse atrophy. Mild to moderate T2 and FLAIR white matter hyperintensities, commonly seen with aging and usually attributed to small vessel ischemic disease.
On sagittal T1-weighted sequence, disc/osteophyte complex at C4-5 appears to result in slight compression of the anterior margin of the cervical spinal cord.
Acute Bronchitis and TME secondary to COVID-19
-Chest X-Ray - [facility]
-Started molnupiravir (Unable to give Paxlovid due to interaction with Plavix, checked with pharm, does not interact with stains)
-Symptom management with Mucinex and Tessalon Perles
On room air SaO2 94%
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
-Continue aspirin
Essential Hypertension
-most recently 128/67
Hyperlipidemia
-Continue simvastatin
DVT proph: SCDs
Code Status: Full Code
dc to home
see dictated note
call placed and discussed with dgt
More than 30 minutes spent in discharge including
Final examination of the patient
Summarizing hospital stay
Instructions for continuing care to all relevant caregivers
Preparation of discharge records, prescriptions, and referral forms
Total time spent (in minutes): 45
Anticipated Discharge: Today
Subjective/Interval History
-
Date of Service: June 26, 2024
Feels well, anxiously awaiting dc
Objective Data
-
Labs:
Laboratory Results
06/26/24
06:38
WBC 6.1
Hgb 16.5
Hct 47.9
Plt Count 156 D
Vital Signs:
Vital Signs
Temp Pulse Resp BP Pulse Ox
98.0 F 71 18 124/76 95
06/26/24 07:00 06/26/24 08:15 06/26/24 07:00 06/26/24 08:15 06/26/24 07:00
I&O
06/25/24 06/26/24 06/27/24
06:59 06:59 06:59
Intake Total 2099
Balance 2099
Review of Systems
-
History Source: Patient and Coordinated Provider
Constitutional: Reports Fever (Tmax 102.1)
EENT: Reports No Symptoms Reported
Respiratory: Reports Cough; Denies Trouble Breathing
Cardiac: Reports No Symptoms; Denies Chest Pain
Abdomen/GI: Reports No Symptoms; Denies Abdominal Pain
Genitourinary: Reports No Symptoms
Neuro: Reports No Symptoms (no confusion, word finding difficulty not noted)
Hematologic / Lymphatic: Reports No Symptoms
Physical Exam
-
General: Well Developed, Well Nourished and No Apparent Distress
HEENT: Normocephalic, Atraumatic and Moist Mucous Membranes
Respiratory: Clear to Auscultation; Negative Wheezes, Rales or Rhonchi
Cardiac: Regular Rhythm and S1/S2
GI: Soft, Nontender and Nondistended
Musculoskeletal: No Clubbing, No Cyanosis and No Edema
Neuro: Awake, Alert, Oriented, AO x 3 and No Motor Deficits (gait tested, did not notice any impairments); Negative Slurred Speech or Facial Droop
--- NOTE | 2024-06-26 11:04 | CM ---
Reviewed the chart notes. Per PT evaluation, no PT needs. IMM reviewed with spouse via telephone and placed on chart. CM continues to be available to patient/family and is monitoring medical plan for needs at discharge.
Plan: Discharge to home when medically stable. No needs identified at this time.
[2024-06-26 11:05] VITALS: BP 108/76
--- NOTE | 2024-06-26 14:57 | PTCARENOTE ---
Patient discharged home. This RN removed patient's IV and telemetry pack. Discharge instructions/medications reviewed with patient who verbalized understanding. This RN communicated with MD regarding patient's Jana script, MD stated he
communicated with patient's daughter who is physician who stated she will fill script for patient. Patient dressed and gathered belongings independently. Patient being transported home by spouse, refused wheelchair and staff escort and ambulated
with spouse down to car.
--- NOTE | 2024-06-26 15:10 | W.DS.TRANS ---
DC Summary - Petroleum Production Engineer
-
Discharge Instructions:
Discharge Diagnosis/Procedures Acute Covid-19
Diet Regular
Activity No strenuous activity
Additional Activity self isolate for 1 week
Driving Restrictions Not until seen by your Dr
Bathing Restrictions None
Instructions:
Stand-Alone Forms:
Changes to Home Medications: Yes
Discharge Medications:
DC Medications w/original date entered in [facility]
aspirin 81 mg tablet,delayed release 81 mg PO DAILY Blood Clot Prevention/Tx 03/14/23
metoprolol tartrate 25 mg tablet 25 mg PO BID Blood Pressure 03/14/23
simvastatin 40 mg tablet 40 mg PO HS High Cholesterol 03/14/23
Eye Injection 1 dose SC .Q4-5W 06/24/24
Fish Oil 4 tab PO HS 06/24/24
nitroglycerin 0.4 mg sublingual tablet 0.4 mg sublingual [id number] PRN chest pain 06/24/24
tadalafil 5 mg tablet 5 mg PO DAILYPRN PRN urinary 06/24/24
valsartan 320 mg tablet 320 mg PO DAILY 06/24/24
guaifenesin 600 mg tablet, extended release 12 hr 600 mg PO Q12 #30 tabs 06/26/24
molnupiravir 200 mg capsule (EUA) (Lagevrio) 800 mg (4 x 200 mg) PO Q12 #40 caps 06/26/24
Home Medication Changes
Molnupiravir added for next 5 days
Pending Results: No
--- NOTE | 2024-06-28 12:48 | PN.CDI ---
CDI
- -
CDI:
Physician Documentation Request
Admit Date: 06/24/24 20:59
Dear Doctor Prudence,
Please review the following and provide your response in the progress notes.
Clinical Indicators:
Discharge Summary, 06/26
#1. Acute COVID encephalopathy.
#2. Acute COVID.
#HOSPITAL COURSE:
#...Patient is an 78-year-old gentleman who presented to the hospital
#...with significant confusion, aphasia and with evidence of COVID.
#The initial concern was that this was an acute CVA with the patient
#...undergoing MRI which was negative for evidence of CVA.
#...fortunately, after initial 36-48 hours, his mentation markedly improved and as of today,
#...his mentation is excellent for an 78-year-old man and most likely at his baseline status.
Based on the above and your clinical assessment. please clarify the most likely type of encephalopathy....
Encephalopathy - indicate type, such as metabolic, toxic, septic, alcoholic, anoxic, hypertensive etc. due to a specific condition such as Covid, UTI, CVA, hyponatremia etc.
Covid Encephalopathy
Other (please specify)
Use of terms such as suspected, likely, concern for, or probable (associated with a specific diagnosis that is being evaluated, monitored, or treated as if it exists) are acceptable and can be coded in the inpatient setting, when documented at the
time of discharge.
Thank you,
Kim Stone RN BSN CCDS
CDI Specialist
please contact via tiger text
Please use your independent medical judgment in providing your response.
== END 2024-06-26 15:47 | disposition home or self-care (01) | DRG 177 ==
LOC: 2 NORTH 20:59
PROVIDERS: Physician Assistant Medical; Student in an Organized Health Care Education/Training Program; ADMITTING PHYSICIAN Internal Medicine; ATTENDING PHYSICIAN Internal Medicine; CONSULT PHYSICIAN Psychiatry & Neurology Neurology; EMERGENCY PHYSICIAN Emergency Medicine; FAMILY PHYSICIAN Family Medicine
DX: U07.1 COVID-19 (principal); G93.41 Metabolic encephalopathy; R47.01 Aphasia; G95.20 Unspecified cord compression; I10 Essential (primary) hypertension; I73.9 Peripheral vascular disease, unspecified; I65.22 Occlusion and stenosis of left carotid artery; J20.8 Acute bronchitis due to other specified organisms; E78.5 Hyperlipidemia, unspecified; I25.10 Atherosclerotic heart disease of native coronary artery without angina pectoris; Z95.5 Presence of coronary angioplasty implant and graft; Z79.02 Long term (current) use of antithrombotics/antiplatelets; Z79.82 Long term (current) use of aspirin; Z79.899 Other long term (current) drug therapy
CPT/HCPCS: 70450; 70544; 70548; 70551; 71045; 80048; 80053; 80061; 81003; 81015; 82962; 83036; 84145; 84484; 85025; 85027; 85610; 85730; 86140; 87502; 87811; 92523; 92610; 93005; 95816; 97161; 97166; 99285; A9585

== ENCOUNTER → 2024-11-21 07:11 | Outpatient (REF) | payer BC, SELFPAY | LOC: MRI 07:11 | PROVIDERS: ATTENDING PHYSICIAN Orthopaedic Surgery Orthopaedic Surgery of the Spine; FAMILY PHYSICIAN Family Medicine; REFERRING PHYSICIAN Family Medicine | DX: M48.062 Spinal stenosis, lumbar region with neurogenic claudication (principal) | CPT/HCPCS: 72148 ==

== ENCOUNTER → 2024-12-13 09:21 | Outpatient (REF) | payer BC, SELFPAY | LOC: RAD 09:21 | PROVIDERS: ATTENDING PHYSICIAN Registered Nurse | DX: I65.22 Occlusion and stenosis of left carotid artery (principal) | CPT/HCPCS: 93880 ==

== ENCOUNTER → 2025-01-28 11:02 | Outpatient (REF) | payer BC, SELFPAY ==
[2025-01-28 12:30] LABS: Hematocrit 46.4 % (39.0-52.0); Hemoglobin 15.9 g/dL (13.0-18.0); Mean Corp Hgb Conc. 34.3 g/dL (33.0-37.0); Mean Corpuscular Hgb 31.1 pg (27.0-31.0); Mean Corpuscular Volume 90.8 fL (80.0-94.0); Red Blood Cell Count 5.11 10^6/uL (4.70-6.10); Red Cell Dist. Width 12.7 % (11.5-14.5); White Blood Cell Count 7.3 10^3/uL (4.8-10.8)
[2025-01-28 12:31] LABS: % Basophils 0.7 % (0-2); % Eosinophils 3.3 % (0-6); % Immature Granulocytes 0.1 % (0-0.5); % Lymphocytes 42.9 % (20.5-51.1); % Monocytes 8.1 % (1.7-9.3); % Neutrophils 44.9 % (42.2-75.2); Absolute Basophils 0.1 10^3/uL (0-0.2); Absolute Eosinophils 0.2 10^3/uL (0-0.7); Absolute Lymphocytes 3.1 10^3/uL (1.2-3.4); Absolute Monocytes 0.6 10^3/uL (0.1-0.6); Absolute Neutrophils 3.3 10^3/uL (1.4-6.5); Nucleated Red Blood Cells % 0 % (-)
[2025-01-28 13:11] LABS: ALT (SGPT) 23 U/L (0-50); AST (SGOT) 32 U/L (17-59); Albumin 4.7 g/dl (3.5-5.0); Alkaline Phosphatase 61 U/L (38-126); Blood Urea Nitrogen 15 mg/dl (9-20); Calcium 9.4 mg/dl (8.4-10.2); Carbon Dioxide 25 mmol/L (22-30); Chloride 109 mmol/L (98-107); Glucose 90 mg/dl (70-99); HDL Cholesterol 48 mg/dl; LDL Cholesterol, Calculated 102 mg/dl; Potassium 4.3 mmol/L (3.5-5.1); Sodium 144 mmol/L (135-145); Total Bilirubin 1.1 mg/dl (0.2-1.3); Total Cholesterol 183 mg/dl (50-199); Total Protein 7.4 g/dl (6.3-8.2); Triglyceride 168 mg/dl (10-149); Very Low Density Lipoprotein 33 mg/dl (0-30); eGFR > 60.00
[2025-01-28 13:48] LABS: TSH 2.64 uIU/ml (0.47-4.68)
[2025-01-28 14:20] LABS: Glycohemoglobin (HgbA1c) 5.7 % (4.0-5.6)
[2025-01-28 14:33] LABS: Microalbumin, Random Urine 2.7 mg/dl (0.6-1.7); Microalbumin/creatinine Ratio 15.1 mg/g
== END ==
LOC: REG 11:02
PROVIDERS: ATTENDING PHYSICIAN Family Medicine; OTHER PHYSICIAN Family Medicine
DX: E03.9 Hypothyroidism, unspecified (principal); I10 Essential (primary) hypertension; E78.5 Hyperlipidemia, unspecified; E11.9 Type 2 diabetes mellitus without complications; N39.0 Urinary tract infection, site not specified
CPT/HCPCS: 36415; 80053; 80061; 82043; 82570; 83036; 84443; 85025

== ENCOUNTER → 2025-04-30 07:57 | Outpatient (REF) | payer BC, SELFPAY ==
[2025-04-30 09:32] LABS: Glycohemoglobin (HgbA1c) 5.6 % (4.0-5.6)
[2025-04-30 10:35] LABS: ALT (SGPT) 23 U/L (0-50); AST (SGOT) 30 U/L (17-59); Albumin 4.6 g/dl (3.5-5.0); Alkaline Phosphatase 62 U/L (38-126); Blood Urea Nitrogen 20 mg/dl (9-20); Calcium 9.3 mg/dl (8.4-10.2); Carbon Dioxide 25 mmol/L (22-30); Chloride 110 mmol/L (98-107); Glucose 93 mg/dl (70-99); HDL Cholesterol 45 mg/dl; LDL Cholesterol, Calculated 45 mg/dl; Potassium 4.2 mmol/L (3.5-5.1); Sodium 143 mmol/L (135-145); Total Protein 7.3 g/dl (6.3-8.2); Very Low Density Lipoprotein 16 mg/dl (0-30); eGFR > 60.00
== END ==
LOC: REG 07:57
PROVIDERS: ATTENDING PHYSICIAN Family Medicine
DX: I10 Essential (primary) hypertension (principal); E78.5 Hyperlipidemia, unspecified; E11.9 Type 2 diabetes mellitus without complications
CPT/HCPCS: 36415; 80053; 80061; 83036

== ENCOUNTER → 2025-08-04 10:16 | Outpatient (REF) | payer BC, MEDICARE, SELFPAY ==
[2025-08-04 19:10] LABS: Urine Character Clear (Clear)
[2025-08-04 19:25] LABS: Urine Red Blood Cell 0-2 /HPF (0-2); Urine Squamous Cell 0-2 /LPF (Few); Urine White Cell 0-2 /HPF (0-5)
== END ==
LOC: CLAB 10:16
PROVIDERS: ATTENDING PHYSICIAN Specialist
DX: R31.9 Hematuria, unspecified (principal)
CPT/HCPCS: 81003; 81015

== ENCOUNTER → 2025-08-19 10:07 | Outpatient (REF) | payer BC, MEDICARE, SELFPAY | LOC: RAD 10:07 | PROVIDERS: ATTENDING PHYSICIAN Family Medicine | DX: G54.4 Lumbosacral root disorders, not elsewhere classified (principal) | CPT/HCPCS: 72100 ==

== ENCOUNTER → 2025-08-25 10:17 | Outpatient (REF) | payer BC, SELFPAY | LOC: RAD 10:17 | PROVIDERS: ATTENDING PHYSICIAN Family Medicine; FAMILY PHYSICIAN Family Medicine | DX: M79.671 Pain in right foot (principal) | CPT/HCPCS: 73630 ==